=== PATIENT | male | born 1980 | race Caucasian/White ===

== ENCOUNTER → 2017-02-14 | Outpatient (CLI) | payer OTHER ==
--- NOTE | 2017-02-14 15:44 | NM ---
BONE SCAN CLINICAL INDICATION: Polyarthralgia and sacroiliitis PROCEDURE: Approximately 2-4 hours following intravenous administration of 25.4 mCi of [id number], whole body delayed planar images were obtained from the anterior and posterior projections. COMPARISON: None FINDINGS: There is normal by distribution of the radiotracer within the axial and appendicular skeleton. There is normal by distribution of the radiotracer within the genitourinary system and soft tissues. IMPRESSION: 1. Normal bone scan. Reported By:
== END ==
LOC: RAD 08:34
PROVIDERS: ATTEND Specialist
DX: M46.1 Sacroiliitis, not elsewhere classified (principal)
CPT/HCPCS: 78306